=== PATIENT | male | born 1935 | race Caucasian/White ===

== ENCOUNTER → 2016-09-19 | Outpatient (CLI) | payer OTHER, BC ==
[~2016-09-19] VITALS: Ht 172.7 cm; Wt 79.4 kg
[~2016-09-19] MED LIST: ALLERGY SHOTS SUBQ; AMBIEN 10 MG TA10 MG PO; ANTIBIOTIC; APAP650 PO; ASPIRIN EC81 M1 PO; AUGMENTIN 875875 MG PO; CELEBREX 200 M200 M1 PO; CELEBREX 200 M200 MG PO; CIALIS2.5 MG PO; DICLOFENAC SODI75 MG PO; FLONASE 0.05%50 MCG NASAL; HYDROCODON-ACE1 EAC7 PO; IRON325 PO; KLONOPIN0.5 MG PO; LASIX 20 MG TAB20 MG PO; LEXAPRO 10 MG T10 M2 PO; LIORESAL 10 MG10 MG PO; METAMUCIL1 EAC1 PO; METAXALONE800 MG PO; MS CONTIN15 MG PO; NASONEX17 GM NASAL; NEURONTIN 300300 M1 PO; NEURONTIN 300M300 M2 PO; NEURONTIN PO; NEXIUM40 MG PO; NORVASC 2.5 MG2.5 MG PO; OXYCONTIN20 M1 PO; PREVACID30 MG PO; PROSCAR 5MG TABL5 MG PO; REQUIP 1 MG TABL1 M1 PO; REQUIP1 MG PO; REQUIP4 MG PO; ROXICODONE5 MG PO; SKELAXIN 800 M800 M1 PO; STOOL SOFTENER100 MG PO; TIZANIDINE HCL 22 MG PO; TRAMADOL 50 MG50 MG PO; VITAMIN D PO; XARELTO10 M1 PO; ZOCOR80 MG PO; ZYRTEC10 M2 PO; [UNRECOGNIZED DRUG - OTHER]
--- NOTE | ~2016-09-19 | P ---
[facility] [place] [address] PROCEDURE REPORT Name: EMMA LOPEZ Room #: REG [facility]#: [id number] Admission: 09/19/16 Attend Phys: Derian Venegas MD Discharge: Date of : 33 Report #: [id number] THIS REPORT FOR: //name// CC: Derian Montgomery MD OUTPATIENT UPPER ENDOSCOPY REPORT BRIEF HISTORY: The patient is an 81-year-old male with known history of dysphagia who presents with recurrent solid food dysphagia. He was last dilated about 5 years ago. His reflux symptoms are well controlled with Nexium 40 mg daily. PREOPERATIVE DIAGNOSES: Recurrent solid food dysphagia and history of esophageal ring. POSTOPERATIVE DIAGNOSES: 1. Large hiatus hernia. 2. Mild gastritis. 3. Esophageal ring. 4. Short esophagus secondary hiatus hernia. MEDICATIONS: Deep sedation with propofol per anesthesia. SPECIMEN: None. ESTIMATED BLOOD LOSS: None. PROCEDURE: EGD with insertion of guidewire and dilation was Savary dilator over the wire. FINDINGS: Prior to propofol sedation, procedure of upper endoscopy and dilation discussed with the patient as well as potential risks and its complications. He indicates he understands and desires to proceed. DESCRIPTION OF PROCEDURE: With the patient in left lateral decubitus position, the Compassofti video endoscope was inserted in the cervical esophagus under direct vision without difficulty. Examination of this organ through its entire length revealed normal esophageal mucosa down the squamocolumnar junction. The distal esophagus was tortuous and somewhat for short related to a large hiatus hernia. Intermittently, a mild ring was seen. There is no evidence of Turner's esophagitis, ulcers or mass lesions. Scope was advanced into a large hiatus hernia. The hernia was so large I could retroflex the scope within the hernia. There may be slight paraesophageal component to the hernia as well. The mucosa and hernia was unremarkable. However, there was a sharp angulation out of the hernia into the distal stomach. Examination of distal stomach revealed erythema [facility] [address] [place] [address] PROCEDURE REPORT Name: [facility] Room #: REG [facility].#: [id number] Admission: 09/19/16 Attend Phys: Derian Venegas MD Discharge: Date of : 33 Report #: [id number] which has been described in the past, previous biopsies were negative for H. pylori. Those were not repeated. Upon retroflexion, the hernia was seen, but no other abnormalities were identified. The pylorus, duodenal bulb and postbulbar duodenal sweep were all inspected and noted to be within normal limits. At that point, the scope was slowly withdrawn and careful circumferential views were obtained. Due to angulation out of the hiatus hernia, Savary wire was advanced through the biopsy channel scope and the caudal tip was placed in the duodenal bulb. The scope was withdrawn over the wire. Subsequently, a 17 mm Savary dilator was advanced over the wire without difficulty. The Savary dilator passed without problem. There was no resistance. There was no resistance the scope. The dilator and wire were withdrawn. The patient tolerated the procedure well. CONDITION OF THE PATIENT UPON DISCHARGE: Following procedure, the patient drowsy and he will be discharged home when fully ambulatory. INSTRUCTIONS TO THE PATIENT AND FAMILY AT THE TIME OF DISCHARGE: The patient dilated as described above. He does have a ring, but he also has a large hiatus hernia. This may be problematic with regards to his swallowing, also may be an issue for his reflux. He has been noted to have large hiatus hernia in past but based on previous notes, it sounds likely it may be a little larger as well. Therefore, we will obtain an upper GI series for further evaluation and documentation, if it is large hiatus hernia. CONDITIONS OF THE PATIENT UPON DISCHARGE: Following procedure, the patient drowsy, aroused, conversant and will be discharged home when fully ambulatory. INSTRUCTIONS TO PATIENT AND FAMILY AT THE TIME OF DISCHARGE: The patient and dilated described above. He should return for dilation on an as needed basis, based on symptoms. We will also have obtained a barium upper GI to further delineate his hiatus hernia. <ELECTRONICALLY SIGNED> By: Derian Venegas MD 09/23/16 1224 [id number] Derian Venegas MD /nt
== END ==
LOC: GI 09:04
DX: K29.60 Other gastritis without bleeding (principal); K44.9 Diaphragmatic hernia without obstruction or gangrene; K22.2 Esophageal obstruction; E78.00 Pure hypercholesterolemia, unspecified; K21.9 Gastro-esophageal reflux disease without esophagitis; F32.9 Major depressive disorder, single episode, unspecified

== ENCOUNTER → 2016-09-26 | Outpatient (CLI) | payer OTHER, BC | LOC: RAD 02:02 | DX: K44.9 Diaphragmatic hernia without obstruction or gangrene (principal); R13.10 Dysphagia, unspecified; K21.9 Gastro-esophageal reflux disease without esophagitis ==

== ENCOUNTER → 2016-12-16 | Outpatient (CLI) | payer OTHER, BC ==
[~2016-12-16] VITALS: Ht 172.7 cm; Wt 74.6 kg
--- NOTE | ~2016-12-16 | HPC ---
[facility] [place] [address] PAIN MANAGEMENT CONSULTATION Name: EMMA LOPEZ Room #: REG [facility] Hugo.#: [id number] Admission: 12/16/16 Attend Phys: Blake Burrell DO Discharge: Date of : 33 Report #: [id number] THIS REPORT FOR: //name// CC: Blake Montgomery MD DATE OF SERVICE: 12/16/2016 CHIEF COMPLAINT: Low back pain, right lower extremity pain and paresthesias. HISTORY OF PRESENT ILLNESS: As you know, the patient is a very pleasant 81-year-old male who returns today in followup visit stating his cramping sensation in the lower extremities have improved with the discontinuation of his Lipitor. He is now off statin medications. His cramping at night has improved significantly. He continues to experience insomnia for which he takes clonazepam, which is provided through our services. Overall, back pain has improved significantly. He is placing pain score no greater than 3/10. States that when the pain is present it is spasming and aching in sensation, exacerbated with getting up and sitting in a hardback chair, improves with repositioning, sitting and intermittent use of medications. He has returned for refills of medication. ALLERGIES: SULFA, HYDROCODONE, ADHESIVE TAPE, TRAMADOL, LATEX. CURRENT MEDICATIONS: Fluticasone, vitamin D, finasteride, furosemide, celecoxib, omeprazole, acetaminophen, Metamucil, aspirin, Cialis, cetirizine, clonazepam. SOCIAL HISTORY: The patient denies tobacco, alcohol or IV illicit drug use. He is retired, not receiving workmen's compensation, unaccompanied today. IMAGING: No new imaging is available. PHYSICAL EXAMINATION: VITAL SIGNS: Blood pressure 131/80, pulse is 72, respiratory rate 14, unlabored. The patient is 100% on room air. Height 5 feet 8 inches tall, weight 164.4 pounds, BMI calculated 25. GENERAL: Well-developed, well-nourished, well-hydrated 81-year-old male appearing his stated age, placing current pain score at around 3/10. HEENT: Normocephalic, atraumatic. Pupils are equal, round, reactive to light. Extraocular muscles are intact. Sclerae are nonicteric without injection. EXTREMITIES: Show no clubbing, no cyanosis, no edema. MUSCULOSKELETAL: Lower extremity strength is once again equal and symmetrical 5/5, muscle bulk and tone equal and symmetrical. Seated straight leg raising negative. Supine straight leg raising positive. James's test negative. Active [address] [address] PAIN MANAGEMENT CONSULTATION Name: EMMA LOPEZ [facility] Room #: REG [facility] JmJose#: [id number] Admission: 12/16/16 Attend Phys: Blake Burrell DO Discharge: Date of : 33 Report #: [id number] and passive range of motion of the right shoulder does intensify patient's pain when he came today but this is unchanged. ASSESSMENT: 1. Symptomatic lumbar radiculopathy. 2. Severe progressively worsening spinal stenosis of lumbar spine. 3. Displacement of lumbar intervertebral disk with radiculopathy. 4. Lumbosacral spondylosis with radiculopathy. 5. Lumbar degeneration. 6. Chronic insomnia. 7. Chronic intractable pain. PLAN: 1. The patient returns today in followup visit indicating near complete resolution of his muscle cramping at night with the discontinuation of the statin medications. The patient is remaining off these medications for the foreseeable future. The patient and I did discuss the current medications he is taking for pain. The only medication he need to refill at this time is clonazepam and this is used mainly for his insomnia issues. We added it for the muscle spasming, but he continues to use it for insomnia and thus he finds it effective. I would recommend he continue on medication. This can be taken over by his primary physician as we are not typically providing any medication therapy for insomnia issues. The patient could certainly return to our clinic for clonazepam therapy. He has been appropriate with the medication. I do not have any problem continuing the therapy though it would be more appropriate to be handled through his primary care physician or a sleep physician. 2. The patient was provided a prescription of clonazepam 0.5 mg 1 tab p.o. b.i.d. I have given the patient #60, 2 refills, 3 months' worth of medication. 3. At this time, the patient needs no interventional treatments. He is doing very well from a pain standpoint. He is somewhat upset as he is being evaluated from his job standpoint. He is concerned he may lose his job. Apparently, the patient has had some issues with his new boss and this had led to some different arguments. He has been with this [employer] for nearly 23 years. He states this anxiety has probably exacerbated his symptoms as well. He is hopeful this will improve over the next couple of days. 4. I will see the patient back in followup visit 3 months from today for medication therapy if necessary. By: 1322 37 Blake Burrell DO /nt
[2016-12-16 11:00] VITALS: BP 131/80
== END | disposition home or self-care (01) ==
LOC: PAIN 06:53
DX: M51.16 Intervertebral disc disorders with radiculopathy, lumbar region (principal); G89.29 Other chronic pain; M48.06 Spinal stenosis, lumbar region; M47.27 Other spondylosis with radiculopathy, lumbosacral region; F51.04 Psychophysiologic insomnia; Z79.82 Long term (current) use of aspirin; Z91.040 Latex allergy status; Z88.2 Allergy status to sulfonamides; Z88.8 Allergy status to other drugs, medicaments and biological substances

== ENCOUNTER → 2017-04-21 | Outpatient (CLI) | payer OTHER, BC ==
[~2017-04-21] VITALS: Ht 172.7 cm; Wt 72.8 kg
[~2017-04-21] MED LIST changes: +CRESTOR10 MG PO; +FISH OIL 1,001000 M2 PO; +GLUCOSA-CHOND-1 EACH PO; +LISINOPRIL10 MG PO; +PROBIOTIC1 EAC1 PO
--- NOTE | ~2017-04-21 | HPC ---
[facility] [place] [address] PAIN MANAGEMENT CONSULTATION Name: EMMA OLPEZ [facility] [id number] Admission: 04/21/17 Attend Phys: Blake Burrell DO Discharge: Date of : 33 Report #: [id number] THIS REPORT FOR: //name// CC: Blake Montgomery MD DATE OF SERVICE: 04/21/2017 DATE OF SERVICE: 04/21/2017 CHIEF COMPLAINT: Left neck pain, left shoulder pain, chronic low back pain. HISTORY OF PRESENT ILLNESS: As you know, the patient is a very pleasant 81-year-old male who returns today in followup visit for medication management. He has returned requesting refills of his clonazepam. He uses his clonazepam for anxiolysis and to help with muscle spasming in the evening hours and this has been effective treatment. He returns requesting refill on medication. He does provide information today about recent hospitalizations. Apparently, he has undergone 3 surgeries in a very short period of time. He has had a coronary artery bypass x 3, herniorrhaphy and underwent a third surgery from related issues. The patient returns indicating increasing neck pain after a myofascial injury and wishes to discuss treatment options for this as well. ALLERGIES: SULFA, HYDROCODONE, ADHESIVE TAPE, TRAMADOL, LATEX. CURRENT MEDICATIONS: Aspirin 81 mg per day, Metamucil 1 pack per day, escitalopram 10 mg per day, omeprazole 40 mg per day, celecoxib 200 mg once a day, docusate sodium 100 mg once a day, fluticasone 1 spray each nostril per day, clonazepam 0.5 mg 2 tabs p.o. at bedtime, glucosamine chondroitin 1 tab per day, Crestor 10 mg per day, cetirizine 10 mg per day, lisinopril 10 mg per day, furosemide 20 mg per day, lactobacillus 1 tab per day. SOCIAL HISTORY: The patient denies tobacco, alcohol, IV or illicit drug use. He is no longer working. He is unaccompanied. IMAGING: No imaging available. PHYSICAL EXAMINATION: VITAL SIGNS: Blood pressure 103/55, pulse 63, respiratory rate 16, unlabored, the patient 99% on room air, height 5 feet 8 inches tall, weight 160.4 pounds, BMI calculated 24.4. GENERAL: Well developed, well nourished, well hydrated, 81-year-old male appearing his stated age. He is placing current pain score at 7/10 involving the left neck and trapezius area. HEENT: Normocephalic, atraumatic. Pupils equal, round, [place] [address] PAIN MANAGEMENT CONSULTATION Name: JESSICAEMMA CAMILA Room #: REG [facility] Hugo.#: [id number] Admission: 04/21/17 Attend Phys: Blake Burrell DO Discharge: Date of : 33 Report #: [id number] Extraocular muscles are intact. EXTREMITIES: Show no clubbing, no cyanosis, no edema. MUSCULOSKELETAL: There is palpatory tenderness over the paraspinal musculature of the cervical and upper thoracic area. There appears to be 5 trigger points that cause the typical patient's radiating pain pattern. PLAN: 1. I discussed options for treatment for myofascial symptoms. These would include physical therapy, stretching exercises, core strengthening. We discussed medication changes to address muscle spasming. We also discussed trigger point injections as most rapid and effective treatment option. We also discussed acupuncture therapy and chiropractic myofascial treatments. After reviewing risks and benefits of all proposed treatment options, the patient chose to undergo trigger point injections at the bedside today. 2. The patient was provided a prescription of clonazepam. We will increase his dose to 1.5 mg a day. We have given the patient a 0.5 mg tablets to take 2 to 3 at night as necessary for muscle spasming and anxiety issues. He has been appropriate with his medication in the past. I do not feel at all concerned about providing the patient with this third tablet of 0.5 mg dose for times when his anxiety and restless legs is more active. He was given #90 tablets with 2 refills, 3 months' worth of medication. 3. We will see the patient back in followup visit in 3 months for medication therapy or earlier if he wishes to address ongoing myofascial pain. PROCEDURE NOTE PROCEDURE: Trigger point injections. DESCRIPTION OF PROCEDURE: After obtaining written consent, the patient was placed in a seated position. By palpating using a single finger, five trigger points were identified that caused the patient's typical radiating pain pattern. The patient was prepped and draped in aseptic fashion using chlorhexidine. A 27 gauge 1-1/4 inch needle was used to advance towards each of the trigger points. Each trigger point was injected with 1 mL of a solution containing 1 mL 40 mg per mL, 40 mg total triamcinolone and 4 mL bupivacaine 0.5%. Each injection was done in a fanned out distribution. The needles were then removed. Sterile bandage placed over each injection site. The patient tolerated the procedure well. The patient was carefully taken to our recovery room where he spent time [address] [address] PAIN MANAGEMENT CONSULTATION Name: EMMA LOPEZ [facility] [id number] Admission: 04/21/17 Attend Phys: Blake Burrell DO Discharge: Date of : 33 Report #: [id number] recovering. After meeting our discharge criteria and noting to have no weakness in the upper extremities or changes in his breathing, he was discharged home. By: [id number] Blake Burrell DO /nt
[2017-04-21 11:00] VITALS: BP 103/55
== END ==
LOC: PAIN 06:31
DX: M79.1 Myalgia (principal); Z88.2 Allergy status to sulfonamides; Z88.8 Allergy status to other drugs, medicaments and biological substances; Z91.040 Latex allergy status

== ENCOUNTER → 2017-08-11 | Outpatient (CLI) | payer OTHER, BC ==
[~2017-08-11] VITALS: Ht 172.7 cm; Wt 74.0 kg
[~2017-08-11] MED LIST changes: +ATORVASTATIN CA40 MG PO; +BACLOFEN 10MG T10 MG PO; +BRILINTA90 MG PO; +CLARITIN10 MG PO; +CLONAZEPAM 1 MG1 M1 PO; +CLONAZEPAM0.5 MG PO; +IMDUR 30 MG TAB30 M1 PO; +NITROGLYCERIN0.4 MG SUBLING; +NORTRIPTYLINE H25 M3 PO; +PLAVIX 75 MG TA75 M1 PO; +RANEXA500 MG PO; +VITAMIN D1000 UNI2 PO; +ZANAFLEX4 MG PO
--- NOTE | ~2017-08-11 | HPC ---
[facility] [place] [address] PAIN MANAGEMENT CONSULTATION Name: EMMA LOPEZ [facility] [id number] Admission: 08/11/17 Attend Phys: Blake Burrell DO Discharge: Date of : 33 Report #: [id number] THIS REPORT FOR: //name// CC: Blake Montgomery MD DATE OF SERVICE: 08/11/2017 CHIEF COMPLAINT: Neck pain, left upper extremity pain with paresthesias, chronic low back pain. HISTORY OF PRESENT ILLNESS: As you know, the patient is an 82-year-old male who returns today in followup visit for medication management. The patient reports changes in his medical history with increasing shoulder and neck pain. He indicates that he continues to follow up with his text transcriber, had some heart stenting done recently and now is on anticoagulation, which will now preclude us from providing interventional treatments of any type. He returns to discuss options of medication management to address ongoing pain issues. ALLERGIES: SULFA, HYDROCODONE, ADHESIVE TAPE, TRAMADOL, LATEX. CURRENT MEDICATIONS: Cholecalciferol, tizanidine, Ranexa, nitroglycerin, finasteride, baclofen, clonazepam, lactobacillus, furosemide, lisinopril, hydrochlorothiazide, lovastatin, glucosamine chondroitin, fluticasone, docusate sodium, celecoxib, omeprazole, escitalopram, psyllium and aspirin. SOCIAL HISTORY: The patient denies tobacco, alcohol, IV or illicit drug use. He is retired. He is accompanied by his who is present in room today. IMAGING: No new imaging available. PQRS: The patient has known osteoarthritis. No rheumatoid arthritis. His pain intensity is 6/10. He is not a fall risk, has not had a fall in the past 3 months. He does not use any type of ambulatory device. He is on blood thinners. He is treated for hypertension. He has not been on any opioids for the past 6 weeks. He has a low potential for opioid addiction. His functional assessment tool indicates pain impact of 44/70. PHYSICAL EXAMINATION: VITAL SIGNS: Blood pressure 118/67, pulse 70, respiratory rate 16, unlabored, the patient 99% on room air. Height 5 feet 8 inches tall, weight 163.2 pounds, BMI calculated 24.8. GENERAL: Well-developed, well-nourished, well-hydrated, 82-year-old male. He appears his stated age. Pain is rated today at approximately the 6/10. HEENT: Normocephalic, atraumatic. Pupils equal, round, reactive to light. [address] [address] PAIN MANAGEMENT CONSULTATION Name: JESSICAEMMAGALINA JENSEN Room #: REG CL Jm.#: [id number] Admission: 08/11/17 Attend Phys: Blake Burrell DO Discharge: Date of : 33 Report #: [id number] Extraocular muscles are intact. EXTREMITIES: Show no clubbing, no cyanosis, no edema. MUSCULOSKELETAL: Active and passive range of motion of the left shoulder causes intensification of pain. There is pain elicited with cervical provocation testing as well. ASSESSMENT: 1. Left shoulder pain. 2. Chronic neck pain. 3. Symptomatic lumbar radiculopathy. 4. Severe and progressively worsening spinal stenosis of lumbar spine. 5. Displacement of lumbar intervertebral disk with radiculopathy. 6. Lumbosacral spondylosis with radiculopathy. 7. Lumbar degeneration. 8. Chronic intractable pain. PLAN: 1. The patient returns today in followup visit where we have discussed recent changes in medical history. The patient is now on anticoagulant, which will now out preclude us from providing interventional treatments of any type until which point in time, the patient can come off this medication. This will be anywhere from 6 months to a year. He is to contact his prescribing physician to find out the timeframe specifically. From a pain standpoint, we will make adjustments in medication today in hopes of improving pain. 2. The patient was provided prescription of oxycodone. This is an increase in medication to help with back pain and neck and shoulder pain. I have given the patient 5 mg dose 1 tab p.o. t.i.d. I have given him a short dosing of this medication, lasting for approximately 1 week. This is to determine if he can tolerate the medication without side effects. He is to watch for somnolence, decreased mental acuity, disorientation, confusion, mental slowing and constipation. We have given the patient #30 tablets to trial. He will contact the clinic if this is effective and we will provide a full prescription if it is working well. 3. The patient will be started on amitriptyline 25 mg dose 1 tab p.o. at bedtime for 7 nights and 2 tabs p.o. at bedtime for 7 nights, then 3 tabs p.o. at bedtime. The patient was advised the medication can cause somnolence, decreased mental acuity, disorientation, confusion. He is to take this medication only at night. He is to contact our clinic with any questions or concerns. This is being added for neuropathic symptoms secondary to his spinal stenosis. 4. We will have the patient contact our clinic about the efficacy of the [facility] [address] [place] [address] PAIN MANAGEMENT CONSULTATION Name: EMMA LOPEZ Room #: REG [facility] Vilma#: [id number] Admission: 08/11/17 Attend Phys: Blake Burrell DO Discharge: Date of : 33 Report #: [id number] medications provided today and determine if continuation of therapy or further changes need to be addressed. <ELECTRONICALLY SIGNED> By: Blake Burrell DO 08/25/17 0926 [id number] Blake Burrell DO /nt
[2017-08-11 13:40] VITALS: BP 118/67
== END ==
LOC: PAIN 06:51
DX: M25.512 Pain in left shoulder (principal); G89.29 Other chronic pain; M54.2 Cervicalgia; M54.16 Radiculopathy, lumbar region; M47.897 Other spondylosis, lumbosacral region; Z88.2 Allergy status to sulfonamides; Z88.5 Allergy status to narcotic agent; Z88.6 Allergy status to analgesic agent; Z91.040 Latex allergy status

== ENCOUNTER → 2017-09-22 | Outpatient (CLI) | payer OTHER, BC ==
[~2017-09-22] VITALS: Ht 172.7 cm; Wt 73.4 kg
[~2017-09-22] MED LIST changes: -ATORVASTATIN CA40 MG PO; -BACLOFEN 10MG T10 MG PO; -BRILINTA90 MG PO; -CLARITIN10 MG PO; -CLONAZEPAM 1 MG1 M1 PO; -CLONAZEPAM0.5 MG PO; -IMDUR 30 MG TAB30 M1 PO; -PLAVIX 75 MG TA75 M1 PO
--- NOTE | ~2017-09-22 | HPC ---
[facility] [place] [address] PAIN MANAGEMENT CONSULTATION Name: EMMA LOPEZ Room #: REG [facility] Hugo.#: [id number] Admission: 09/22/17 Attend Phys: Blake Burrell DO Discharge: Date of : 33 Report #: [id number] THIS REPORT FOR: //name// CC: Blake Montgomery MD DATE OF SERVICE: 09/22/2017 REFERRING PHYSICIAN: Frankie Montgomery M.D. CHIEF COMPLAINT: Neck pain, left upper extremity pain and paresthesias, low back pain and left shoulder pain. HISTORY OF PRESENT ILLNESS: As you know, the patient is an 82-year-old male with multiple pain generators including his neck, his left shoulder, his left upper extremity and low back. He returns today in followup visit reporting pain score 5/10. He indicates pain is aching, sore and sharp in sensation, exacerbated with turning his head to the left or to the right and improves with medications and Theracane treatment. He returns to discuss options for treatment. We have started the patient on oxycodone on our last visit and gave him a very short supply of this medication to trial and if it was effective, he was to contact our clinic. Unfortunately, the patient misinterpreted that discussion and he utilized the medication once a day. He did note benefit and does wish to continue the therapy and also discussed the possibility of moving towards physical therapy. ALLERGIES: SULFA, HYDROCODONE, ADHESIVE TAPE, TRAMADOL and LATEX. CURRENT MEDICATIONS: Cholecalciferol, tizanidine, Ranexa, nitroglycerin, finasteride, baclofen, clonazepam, lactobacillus, furosemide, lisinopril, hydrochlorothiazide, losartan, glucosamine chondroitin, fluticasone, docusate sodium, Celebrex, omeprazole, escitalopram and aspirin. SOCIAL HISTORY: The patient denies tobacco, alcohol or IV or illicit drug use. He is retired, retired recently. He is unaccompanied today. IMAGING DATA: No new imaging available. PLAN: The patient has known osteoarthritis. No rheumatoid arthritis. He is placing his pain intensity today at around 5/10. He is not a fall risk, has not had a fall last 3 months. He is on blood thinner in the form of Brilinta. He is not treated for hypertension. He has not been on opioids for greater than 6 weeks. He has a low assessment for opioid addiction. His pain impact score 30/70. [address] [address] PAIN MANAGEMENT CONSULTATION Name: EMMA LOPEZ Room #: REG [facility]#: [id number] Admission: 09/22/17 Attend Phys: Blake Burrell DO Discharge: Date of : 33 Report #: [id number] PHYSICAL EXAMINATION: VITAL SIGNS: Blood pressure 96/59, pulse 95 and respiratory rate 14 and unlabored. The patient is 100% on room air. Height 5 feet 8 inches tall, weight 161.8 pounds and BMI calculated 24.6. GENERAL: Well-developed, well-nourished, well-hydrated 82-year-old male appearing stated age, pain is rated around 5/10. HEENT: Normocephalic and atraumatic. Pupils equal, round and reactive to light. Speech fluent. EXTREMITIES: Show no clubbing, no cyanosis and no edema. MUSCULOSKELETAL: Active and passive range of motion of left shoulder causes intensification of pain. There is pain elicited with cervical provocation testing with rotation, lateral flexion to the left, negative to the right. Spurling's test is equivocal. Upper extremity strength appears symmetrical 5/5, though there is giveaway strength noted with shoulder mobility. ASSESSMENT: 1. Left shoulder pain. 2. Osteoarthritis of the left shoulder. 3. Chronic neck pain. 4. Chronic lumbar radiculopathy. 5. Lumbar degeneration. 6. Chronic intractable pain. PLAN: 1. The patient returns today in followup visit with concerns of neck pain and left shoulder pain. It does appear the patient's shoulder is arthritic. There are likely even some changes within the rotator cuff itself. He appears to be tolerating his symptoms from that area and I would recommend conservative treatment options. We discussed with the patient, physical therapy, stretching exercises as baseline treatment and if this is ineffective, medication management, intraarticular injections and surgical options could be provided. The patient does wish to begin physical therapy in regards to his neck and left shoulder pain. We will send the patient for this as quickly as possible. 2. The patient did indicate improvement in symptoms with oxycodone. We would recommend that he take the 5 mg dose twice a day. We have used oxycodone as he has indicated difficulty with tramadol and hydrocodone. We trialed the patient on a very short dosing of oxycodone to confirm he could tolerate the therapy and he was able to do so without side effects. We would recommend twice a day doses as necessary. We have given the patient a prescription of oxycodone 5 mg 1 tab p.o. b.i.d. to t.i.d., #90. I have provided him with 3 months of prescriptions, so that he can continue the therapy if he finds it beneficial. 3. We will see the patient back in followup visit in 3 months from today to discuss medication management further. We will await information from his [facility] [address] [place] [address] PAIN MANAGEMENT CONSULTATION Name: EMMA LOPEZ Room #: REG [place] Esparza#: [id number] Admission: 09/22/17 Attend Phys: Blake Burrell DO Discharge: Date of : 33 Report #: [id number] physical therapy in regards to initiation of this treatment for cervicalgia and left shoulder pain. By: [id number] Blake Burrell DO /nt
[2017-09-22 13:19] VITALS: BP 96/59
== END ==
LOC: PAIN 07:03
DX: M51.16 Intervertebral disc disorders with radiculopathy, lumbar region (principal); M19.012 Primary osteoarthritis, left shoulder; G89.29 Other chronic pain

== ENCOUNTER → 2017-11-11 | Outpatient (CLI) | payer OTHER, BC ==
[~2017-11-11] VITALS: Ht 172.7 cm; Wt 75.0 kg
[~2017-11-11] MED LIST changes: +CLARITIN10 MG PO; +IMDUR 30 MG TAB30 M1 PO
--- NOTE | ~2017-11-11 | HPC ---
[facility] [place] [address] PAIN MANAGEMENT CONSULTATION Name: EMMA LOPEZ Room #: REG [place] CovarrubiasJoseErin.#: [id number] Admission: 11/11/17 Attend Phys: Blake Burrell DO Discharge: Date of : 33 Report #: [id number] THIS REPORT FOR: //name// CC: Blake Montgomery MD DATE OF SERVICE: 11/11/2017 REFERRING PHYSICIAN: Frankie Montgomery M.D. CHIEF COMPLAINT: Axial back pain, right-sided and insomnia. HISTORY OF PRESENT ILLNESS: As you know, the patient is a very pleasant 82-year-old male who returns today in followup visit stating he has exacerbated some musculature and myofascial symptoms in the right lower back area. He points to the area just overlying the 12th rib on the right. He denies injury, trauma or fall that may have led to symptom development. He states he was in his normal state of health participating in his cardiac rehabilitation program when he began to experience pain while on an elliptical adjunct trainer. He indicates the pain has continued. He sought evaluation with his physical therapist who gave him some stretching exercises, but this has been ineffective. He returns today requesting information about treatment options for myofascial symptoms. He is also complaining of continued insomnia for which he wishes to discuss options for treatment. ALLERGIES: SULFA, HYDROCODONE, ADHESIVE TAPE, TRAMADOL and LATEX. CURRENT MEDICATIONS: See extensive list in chart. SOCIAL HISTORY: The patient denies tobacco, IV or illicit drug use. He is retired, retired about a year ago. He is accompanied by his who is present in room today. IMAGING DATA: No new imaging available. PQRS: The patient has known osteoarthritis. No rheumatoid arthritis. He is placing pain intensity today at around 5/10. He is not a fall risk, has not had a fall in the last 3 months. He is on a blood thinner in the form of Brilinta. He is not suffering from hypertension. He is not on opioids for a long period of time. He has low risk for opioid dependency. His functional assessment tool today 30/70 indicating moderate interference. PHYSICAL EXAMINATION: VITAL SIGNS: Blood pressure 105/60, pulse is 81 and respiratory rate 16 and unlabored. The patient is 100% on room air. Height 5 feet 8 inches tall, [facility] [address] [place] [address] PAIN MANAGEMENT CONSULTATION Name: EMMA LOPEZ Room #: REG [facility] M.Erin.#: [id number] Admission: 11/11/17 Attend Phys: Blake Burrell DO Discharge: Date of : 33 Report #: [id number] weight 165.2 pounds and BMI calculated 25.2. GENERAL: Well-developed, well-nourished, well-hydrated, 82-year-old male. He appears stated age, placing current pain score around 5/10 at the worst. HEENT: Normocephalic and atraumatic. Pupils equal, round and reactive to light. Extraocular muscles are intact. Sclerae nonicteric, without injection. Speech is fluent. LUNGS: Clear. No wheezes, rhonchi or rales. CARDIOVASCULAR: Regular. No appreciable gallop. No rub. ABDOMEN: Soft, nontender and nondistended. EXTREMITIES: Show no clubbing and no cyanosis. MUSCULOSKELETAL: The patient has palpatory tenderness over the twelfth rib on the right. There is no ecchymosis and no changes in skin color, texture of the area. Deep palpation elicits about 4 different trigger points along that musculature. There is a typical radiating pattern of these 4 trigger points. ASSESSMENT: 1. Myofascial pain. 2. Muscle spasms. 3. Chronic insomnia. 4. Chronic intractable pain. PLAN: 1. The patient returns today in followup visit with acute onset of right low back pain. Symptoms appear to be related to the 12th rib area and the paraspinal musculature of the thoracolumbar area. The patient states he was in his normal state of health. He was participating in a physical therapy program for cardiovascular issues and when he was on an elliptical adjunct trainer, he began to experience this pain but does appear myofascial in origin. There is no underlying concern of fracture as he has suffered no falls or injuries. The trigger points identified were 4 and they appeared to be in distribution of the iliocostalis musculature on the right side. We discussed options for treatment. He chose to begin with trigger point injections. He was advised risks and benefits, states understood and wished to proceed. 2. The patient had a very long discussion over 35 minutes of time discussing insomnia. I have advised the patient of recent literature about sleep and how it is correlated to cortisol levels. I believe the patient's sleep architecture has completely altered over the past couple of years and he is now a catching "cat naps" during the day and I believe this is disrupting his sleep. He is also reduced his activity significantly since he left his job and this again has disrupted his normal sleep patterns as he is not as active and thus, he is not requiring more rest and relaxation as he used to while he was working. We discussed alterations in his evening activities, exercise during the day and not late in the evening, which will reduce his potential for remaining more awake in the evening hours. We also discussed the possibility of reducing some of his medications as they, I believe, are causing some of his daytime somnolence. The patient will make adjustments in his medication by discontinuing his clonazepam [facility] [address] [place] [address] PAIN MANAGEMENT CONSULTATION Name: EMMA LOPEZ Room #: REG [facility].#: [id number] Admission: 11/11/17 Attend Phys: Blake Burrell DO Discharge: Date of : 33 Report #: [id number] and discontinuing the use of his Percocet in the evening hours. He will try to adjust his daytime activities to increase exercise and changes routines in that fashion and also reduce his reliance on "cat naps." If the patient is able to do so, I believe his sleep architecture will improve significantly. If he is unable to do so, I would recommend a sleep evaluation. 3. The patient was provided no further changes in medication therapy today. I recommend strongly the patient look into activities that change during the daytime hours to assist for insomnia in the evening. 4. We will see the patient back in followup visit on an as needed basis and hopefully information provided today. We will provide the patient with improvement in his sleep and reduce his pain on the right side. PROCEDURE NOTE DESCRIPTION OF PROCEDURE: Trigger point injection. After obtaining written consent, the patient was placed in a supine position. By palpating using a single finger, we found 4 trigger points that reproduced the patient's typical radiating pain pattern in the thoracolumbar area just overlying what appears to be the 12th rib. The area was then prepped and draped in aseptic fashion using chlorhexidine. A 27 gauge 1/4 inch needle was used to advance towards each of the trigger points. Needle was advanced until reaching the patient's typical pain distribution. Once entering into this area, he noted his typical radiating pain pattern. At that point, we began injection of 2 mL at each of the 4 trigger points and this solution contained 1 mL 40 mg per mL, 40 mg total triamcinolone and 7 mL bupivacaine 0.5%. The needle was manipulated in a field type of block in the area. Needle was then retracted and sterile bandage were placed over each of the 4 injection sites. The patient tolerated procedure well, carefully escorted to the recovery room in stable condition. After meeting discharge criteria, the patient discharged home. <ELECTRONICALLY SIGNED> By: Blake Burrell DO 11/17/17 0811 [id number] Blake Burrell DO /nt
[2017-11-11 09:48] VITALS: BP 105/60
== END | disposition home or self-care (01) ==
LOC: PAIN 07:25
DX: M79.1 Myalgia (principal); G89.29 Other chronic pain; F51.04 Psychophysiologic insomnia; M19.90 Unspecified osteoarthritis, unspecified site; Z88.2 Allergy status to sulfonamides; Z91.040 Latex allergy status; Z88.8 Allergy status to other drugs, medicaments and biological substances; Z79.899 Other long term (current) drug therapy; Z79.82 Long term (current) use of aspirin

== ENCOUNTER → 2018-02-16 | Outpatient (CLI) | payer OTHER, BC ==
[~2018-02-16] VITALS: Ht 172.7 cm; Wt 70.9 kg
[~2018-02-16] MED LIST changes: +BRILINTA90 MG PO
--- NOTE | ~2018-02-16 | HPC ---
[facility] [address] [place] [address] PAIN MANAGEMENT CONSULTATION Name: EMMA LOPEZ Room #: REG [facility] Hugo.#: [id number] Admission: 02/16/18 Attend Phys: Blake Burrell DO Discharge: Date of : 33 Report #: [id number] THIS REPORT FOR: //name// CC: Blake Montgomery MD DATE OF SERVICE: 02/16/2018 REFERRING PHYSICIAN: Frankie Montgomery M.D. CHIEF COMPLAINT: Right shoulder pain secondary to osteoarthritis and left hip pain secondary to osteoarthritis. HISTORY OF PRESENT ILLNESS: As you know, the patient is a very pleasant 82-year-old male who returns today in followup visit with continued right shoulder pain and now left hip pain. As you are aware, the patient is being treated with Brilinta, which has precluded us from providing injection therapies of late. He returns today in followup visit with increasing right shoulder pain and left hip pain for which he provides pain score 6/10. He returns requesting to discuss options for treatment including intraarticular shoulder injections and left hip injections. ALLERGIES: SULFA, HYDROCODONE, ADHESIVE TAPE, TRAMADOL and LATEX. CURRENT MEDICATIONS: See extensive list in chart. SOCIAL HISTORY: The patient denies tobacco or IV or illicit drug use. He is retired, retired years ago. He is accompanied by his who is present in room today. IMAGING DATA: No new imaging available. PQRS: The patient has known osteoarthritis of the bilateral shoulders, bilateral hips and bilateral knees. No rheumatoid arthritis. He is placing pain today at 6/10. He is not a fall risk and has not had a fall in the last 3 months. He is on a blood thinner in the form of Brilinta. He is not treated for hypertension, nor has he had been on opioids for a long period of time. He has a low opioid assessment risk and a functional assessment of 30/70 moderate interference. PHYSICAL EXAMINATION: VITAL SIGNS: Blood pressure 118/69, pulse 86 and respiratory rate 14 and unlabored. The patient is 96% on room air. Height 5 feet 8 inches tall, weight 156.2 pounds and BMI calculated 23.8. GENERAL: Well-developed, well-nourished and well-hydrated 82-year-old male. He [address] [address] PAIN MANAGEMENT CONSULTATION [facility] [id number] Admission: 02/16/18 Attend Phys: Blake Burrell DO Discharge: Date of : 33 Report #: [id number] appears his stated age. He is in mild distress secondary to pain, placing current pain score 6/10. HEENT: Normocephalic and atraumatic. Pupils equal, round and reactive to light. Extraocular muscles are intact. Speech fluent. The patient deemed a good historian. EXTREMITIES: Show no clubbing, no cyanosis and no edema. MUSCULOSKELETAL: Active and passive range of motion of the right shoulder is noted to have intensification of pain. The patient is able to place pain over the anterior portion of the shoulder as well as the lateral portion of the right shoulder, correlating to the AC joint and the biceps tendon. Abduction test is mildly positive on the right. Muscle bulk and tone equal and symmetrical in the upper extremity strength appears preserved. The patient also has palpatory tenderness over the left hip. Active and passive range of motion in the Nelia's fashion causes intensification of left hip pain. Seated straight leg raising negative. Supine straight leg raising negative. ASSESSMENT: 1. Right shoulder pain. 2. Right shoulder osteoarthritis. 3. Left hip pain. 4. Left hip osteoarthritis. 5. Chronic intractable pain. PLAN: 1. The patient returns today in followup visit with ongoing right shoulder pain and left hip pain. We discussed in past possible option of undergoing intra-articular shoulder injection on the right as well as a possible intra-articular left hip injection. The patient at this time will need to gain clearance to come off his Brilinta. He will have to be off the Brilinta for 5 days to safely undergo this procedure. This is based on the EHSAN guidelines. 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 If he is able to come off the medication, we will have him return to undergo these injections at his earliest convenience. The patient will contact our clinic once he has gained clearance to come off the Brilinta and we will schedule him back for a right shoulder intraarticular injection and a left intraarticular hip injection. 2. We made no changes in medication. At this time, the patient will continue current medical therapy as previously prescribed. 3. We will see the patient back in followup visit, hopefully in the next 5 days to undergo right shoulder and left hip injection once he is off his Brilinta. <ELECTRONICALLY SIGNED> By: Blake Burrell DO 02/17/18 0838 [id number] Blake Burrell DO /nt
[2018-02-16 10:11] VITALS: BP 118/69
== END ==
LOC: PAIN 07:03
DX: M19.011 Primary osteoarthritis, right shoulder (principal); M16.12 Unilateral primary osteoarthritis, left hip; G89.4 Chronic pain syndrome

== ENCOUNTER → 2018-04-07 | Outpatient (CLI) | payer OTHER, BC ==
[~2018-04-07] VITALS: Ht 172.7 cm; Wt 70.3 kg
[~2018-04-07] MED LIST changes: +ATORVASTATIN CA40 MG PO; +BACLOFEN 10MG T10 MG PO; +CLONAZEPAM 1 MG1 M1 PO; +CLONAZEPAM0.5 MG PO; +PLAVIX 75 MG TA75 M1 PO
--- NOTE | ~2018-04-07 | HPC ---
[facility] [place] [address] PAIN MANAGEMENT CONSULTATION Name: JESSICAEMMAGALINA JENSEN Room #: REG [place] Esparza#: [id number] Admission: 04/07/18 Attend Phys: Blake Burrell DO Discharge: Date of : 33 Report #: [id number] THIS REPORT FOR: //name// CC: Blake Montgomery DATE OF SERVICE: 04/07/2018 ADDENDUM. After the patient was seen by the doctor, the patient requested a back brace. Dr. Blake Burrell agreed to order a back brace based on the patient's complaint of low back pain. Brace was ordered to reduce mobility of his trunk. <ELECTRONICALLY SIGNED> By: Jacklyn Kramer 04/15/18 [id number] Jacklyn Kramer /nt
--- NOTE | ~2018-04-07 | HPC ---
[facility] [place] [address] PAIN MANAGEMENT CONSULTATION Name: EMMA LOPEZ Room #: [facility] Hugo.#: [id number] Admission: 04/07/18 Attend Phys: Blake Burrell DO Discharge: Date of : 33 Report #: [id number] THIS REPORT FOR: //name// CC: Blake Montgomery DATE OF SERVICE: 04/07/2018 CHIEF COMPLAINT: Low back pain, lower extremity pain with paresthesias. 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 The patient states he is experiencing numbness, tingling, burning and electrical sensations radiating down the leg. This appears to be related to his severe spinal stenosis that has yet to be addressed from a surgical standpoint. He returns today in followup visit having good resolution of his neck and left upper extremity pain with epidural injection provided at last visit. He returns today to discuss options for treatment for his low back symptoms. The patient presently is reaching his level of steroid for the 6 months. He returns to discuss the possibility of undergoing epidural injection in hopes of improving pain. He is also requesting a referral to surgery as he has received a recent MRI, which shows progressive worsening of his spinal stenosis. ALLERGIES: SULFA, HYDROCODONE, ADHESIVE TAPE, TRAMADOL AND LATEX. CURRENT MEDICATIONS: Clonazepam, aspirin, psyllium husk, acetaminophen escitalopram, omeprazole, docusate sodium, fluticasone, glucosamine chondroitin, cetirizine, furosemide, lactobacillus, baclofen, finasteride, nitroglycerin, cholecalciferol, nortriptyline, loratadine, isosorbide dinitrate, Brilinta, and Ranexa. SOCIAL HISTORY: The patient denies tobacco, alcohol, IV or illicit drug use. He is retired, retired years ago, unaccompanied today. IMAGING: No new imaging. The patient has new MRI, though this is not available to us. We are trying to attempt to review the findings. PQRS: The patient has known osteoarthritis of bilateral shoulders, bilateral hips, bilateral knees. No rheumatoid arthritis. He is placing his current pain intensity at around 8-9/10. He is not a fall risk, has not had a fall in the last 3 months. He is on blood thinners in the form of Brilinta. He has history of hypertension. He has not been on opioids for greater than 6 weeks. He is a low risk for opioid addiction. Functional assessment pain impact tool indicates 30/70, [id number] interference. [address] [address] PAIN MANAGEMENT CONSULTATION Name: EMMA LOPEZ Room #: REG CLI Vilma#: [id number] Admission: 04/07/18 Attend Phys: Blake Burrell DO Discharge: Date of : 33 Report #: [id number] PHYSICAL EXAMINATION: VITAL SIGNS: Blood pressure 113/80, pulse 92, respiratory rate 18 and unlabored. The patient is 97% on room air. Height 5 feet 8 inches tall, weight 155 pounds, BMI calculated at 23.6. GENERAL: Well-developed, well-nourished, well-hydrated 82-year-old male appearing his stated age, placing current pain score at 8-9/10. HEENT: Normocephalic, atraumatic. Pupils equal, round, reactive to light. EXTREMITIES: Show no clubbing, no cyanosis, no edema. MUSCULOSKELETAL: Lower extremity strength appears equal and symmetrical 5/5. Slight giveaway strength noted on the left when compared to the right, this is due to pain generation. Seated straight leg raising negative. Supine straight leg raising positive. James's test negative. Modified Gaenslen's positive for axial low back pain. Ankle clonus negative. Babinski is negative. ASSESSMENT: 1. Lumbar radiculopathy. 2. Severe and progressively worsening spinal stenosis of lumbar spine. 3. Displacement of lumbar intervertebral disk with radiculopathy. 4. Lumbosacral spondylosis with radiculopathy. 5. Neural foraminal stenosis of lumbar spine. 6. Facet arthropathy of the lumbar spine. 7. Lumbar degeneration. 8. Chronic intractable pain. PLAN: 1. The patient has returned today in followup visit indicating increasing pain and bilateral lower extremity pain with paresthesias. The patient is also reporting increasing cramping at night with even some increasing foot drop on the left side. The patient sought evaluation through his primary care who sent the patient for further imaging. MRI was obtained, which apparently shows progressively worsening of his spinal stenosis, which does correlate with the patient's bilateral nature of pain. We have discussed with the patient once again the treatment options for lumbar radicular symptoms secondary to spinal stenosis. These would include the following. We discussed physical therapy, stretching exercises, core strengthening to maintain lower extremity strength and potential improvement in pain. We discussed medication management with addition of a neuropathic pain medication. We discussed repeating epidural injections under fluoroscopic guidance for which the patient does note efficacy. We discussed spinal cord stimulator therapy, which will provide some improvement in pain, but will not change the patient's progressively worsening spinal stenosis and finally we discussed the surgical options. After reviewing risks and benefits of all proposed treatment options, the patient chose to undergo epidural injection under fluoroscopic guidance at our next visit after discontinuing his Brilinta and he also requests surgical [facility] [address] [place] [address] PAIN MANAGEMENT CONSULTATION Name: EMMA LOPEZ Room #: [facility] Hugo.#: [id number] Admission: 04/07/18 Attend Phys: Blake Burrell DO Discharge: Date of : 33 Report #: [id number] referral. 2. The patient will discontinue his Brilinta. He will need to be off the medication for 5 days per EHSAN guidelines to safely undergo neuraxial blockade such as epidural injection. He needs to gain clearance to come off the Brilinta to be able to undergo this procedure. We will make the patient an appointment next week on Thursday to undergo epidural injection under fluoroscopic guidance assuming he can come off his Brilinta safely. 3. The patient and I did discuss the possibility of surgical option given his progressive nature of spinal stenosis, his increasing cramping in the bilateral legs that is unrelated to electrolyte abnormality as well as his increasing left foot drop. I do believe that surgical options may be necessary ultimately. I do feel the patient should be evaluated further by Neurosurgery. He does have new MRI, so he can have this evaluated during his consultation. Recommend strongly the patient follow up with Dr. Kendrick Ricketts with [facility]. The patient saw this surgeon in the past and feels comfortable with following up with him. 4. The patient indicates that he has had an increase in his clonazepam in hopes of improving his cramping at night. He also describes some depression that he has. He believes his depression has been exacerbated, which would be a typical side effect of a benzodiazepine. I recommend the patient return to his prior clonazepam dose reducing the potential for depression, which is a significant side effect of benzodiazepines. He will reduce his benzodiazepine level as he has noted no improvement in his cramping and only exacerbation of depression and lethargy. We have given the patient a prescription of clonazepam 0.5 mg 1 tab p.o. at bedtime, I have given him #30 and advised him not to take more than this medication as he saw no benefit with the cramping and only worsening of depression and lethargy. 5. We will see the patient back in followup visit next week. At that time, we will have the patient undergo an epidural injection under fluoroscopic guidance and discuss further the potential surgical options. <ELECTRONICALLY SIGNED> By: Blake Burrell DO 04/13/18 0727 [id number] Blake Burrell DO /nt
[2018-04-07 10:54] VITALS: BP 113/80
== END ==
LOC: PAIN 06:54
DX: M48.061 Spinal stenosis, lumbar region without neurogenic claudication (principal); M51.16 Intervertebral disc disorders with radiculopathy, lumbar region; M47.27 Other spondylosis with radiculopathy, lumbosacral region; M12.88 Other specific arthropathies, not elsewhere classified, other specified site; G89.4 Chronic pain syndrome; M51.36 Other intervertebral disc degeneration, lumbar region

== ENCOUNTER → 2018-04-13 | Outpatient (CLI) | payer OTHER, BC ==
[~2018-04-13] VITALS: Ht 172.7 cm; Wt 73.8 kg
--- NOTE | ~2018-04-13 | HPC ---
[facility] [address] [address] PAIN MANAGEMENT CONSULTATION Name: EMMA LOPEZ [id number] Admission: 04/13/18 Attend Phys: Blake Burrell DO Discharge: Date of : 33 Report #: [id number] THIS REPORT FOR: //name// CC: Blake Montgomery MD DATE OF SERVICE: 04/13/2018 CHIEF COMPLAINT: Low back pain, bilateral lower extremity pain. HISTORY OF PRESENT ILLNESS: As you know, the patient is a very pleasant 82-year-old male who returns today in followup visit having discontinued his anticoagulant therapy in preparation for an epidural injection. The patient reports good efficacy with the epidural injections relieving the majority of his back pain and lower extremity symptoms. He continues to experience progressively worsening symptoms from his spinal stenosis. We are hopeful today's injection will improve this pain. He indicates today, pain level of 8-9/10. ALLERGIES: SULFA, HYDROCODONE, ADHESIVE TAPE, TRAMADOL and LATEX. CURRENT MEDICATIONS: Atorvastatin, Plavix, baclofen, clonazepam, Brilinta, isosorbide dinitrate, loratadine, aspirin, psyllium husk, acetaminophen, citalopram, omeprazole, fluticasone, glucosamine chondroitin, furosemide, lactobacillus, baclofen, finasteride, nitroglycerin, nortriptyline. SOCIAL HISTORY: The patient denies tobacco, alcohol, IV or illicit drug use. He is unaccompanied at today's visit. IMAGING: No new imaging available. PQRS: The patient has known osteoarthritic changes of the neck, lumbar spine and hands. No rheumatoid arthritis. He is placing pain score today at 8-9/10. He is not a fall risk. He has not had a fall in the last 3 months. He is on a blood thinner in the form of Brilinta. He has discontinued Plavix. He is treated for hypertension. He is not on chronic opioids. He has a low addiction potential based on our functional assessment tool. His pain impact 30/70, mild to moderate. PHYSICAL EXAMINATION: VITAL SIGNS: Blood pressure 127/69, pulse 95, respiratory rate 18 and unlabored. The patient is 97% on room air. Height 5 feet 8 inches tall, weight 162.6 pounds, BMI calculated 24.7. GENERAL: Well-developed, well-nourished, well-hydrated, 82-year-old male. He appears stated age, placing current pain score around 8-9/10. [place] [address] PAIN MANAGEMENT CONSULTATION Name: EMMA LOPEZ Room #: REG [facility].#: [id number] Admission: 04/13/18 Attend Phys: Blake Burrell DO Discharge: Date of : 33 Report #: [id number] HEENT: Normocephalic, atraumatic. Pupils equal, round, reactive to light. Extraocular muscles are intact. EXTREMITIES: Show no clubbing, no cyanosis, no edema. MUSCULOSKELETAL: Lower extremity strength appears symmetrical 5/5, intact to light touch from L1 through S2 dermatomes. Seated straight leg raising negative. Supine straight leg raising positive. James's test negative. Modified Gaenslen's positive for axial low back pain. Ankle clonus negative. ASSESSMENT: 1. Symptomatic lumbar radiculopathy. 2. Spinal stenosis of lumbar spine. 3. Displacement of lumbar intervertebral disk with radiculopathy. 4. Lumbosacral spondylosis with radiculopathy. 5. Facet arthropathy of the lumbar spine. 6. Lumbar degeneration. PLAN: 1. The patient returns today in followup visit with recurrence of low back pain, bilateral lower extremity pain, presenting as bilateral in nature. This would correlate with the patient's spinal stenosis, which is classified as severe. He returns to undergo a lumbar epidural injection. He has discontinued his Brilinta in preparation for today's procedure. He has been off the medication for greater than 5 days. He has been advised the risks and benefits of this procedure, states understood and wished to proceed. 2. The patient will return to our clinic for possible next in the series of epidural injections. He has done well with these injections and hopeful to see similar improvement. He was advised to take it easy for the next 48 hours to allow the injection to provide the greatest efficacy. PROCEDURE NOTE: DESCRIPTION OF PROCEDURE: Lumbar epidural steroid injection under fluoroscopic guidance. After obtaining written consent, the patient was taken back to fluoroscopy suite, placed in prone position with pillow under abdomen to decrease the lumbar lordosis. Skin overlying lumbosacral area then prepped and draped in aseptic fashion. Lumbar intervertebral spaces were identified by AP fluoroscopy. Skin and subcutaneous tissue overlying target site of injection was anesthetized with 3 mL of 1% lidocaine. A 20-gauge 3-1/2 inch Tuohy needle advanced under fluoroscopic guidance towards the epidural space using a parasagittal approach. Epidural space identified using loss of resistance to air technique. After negative aspiration for heme or cerebrospinal fluid, 1 mL of Omnipaque was injected. A lumbar epidurogram was confirmed using both AP and lateral fluoroscopy. After negative aspiration [address] [address] PAIN MANAGEMENT CONSULTATION Name: EMMA LOPEZ Room #: REG CL Hugo#: [id number] Admission: 04/13/18 Attend Phys: Blake Burrell DO Discharge: Date of : 33 Report #: [id number] for heme or cerebrospinal fluid, 5 mL of solution containing 2 mL 40 mg per mL, 80 mg total triamcinolone, 3 mL lidocaine 1% injected slowly. Needle retracted approximately half way, flushed with 1 mL of 1% lidocaine and removed. Sterile bandage placed over injection site. No new motor deficits present in lower extremity following procedure. The patient tolerated procedure well, carefully escorted to recovery room in stable condition. No apparent complications. After meeting discharge criteria, the patient discharged home. <ELECTRONICALLY SIGNED> By: Blake Burrell DO 04/14/18 0822 [id number] Blake Burrell DO /nt
[2018-04-13 12:50] VITALS: BP 127/69
== END | disposition home or self-care (01) ==
LOC: PAIN 06:56
DX: M51.16 Intervertebral disc disorders with radiculopathy, lumbar region (principal); M48.061 Spinal stenosis, lumbar region without neurogenic claudication; M47.27 Other spondylosis with radiculopathy, lumbosacral region; M46.96 Unspecified inflammatory spondylopathy, lumbar region; I10 Essential (primary) hypertension; Z91.040 Latex allergy status; Z88.2 Allergy status to sulfonamides; Z88.8 Allergy status to other drugs, medicaments and biological substances; Z79.82 Long term (current) use of aspirin; Z79.899 Other long term (current) drug therapy; Z98.890 Other specified postprocedural states; Z79.01 Long term (current) use of anticoagulants